=== PATIENT | female | born 1940 | race Caucasian/White ===

== ENCOUNTER 2023-10-29 10:15 | Outpatient (RCR) | payer MEDICARE, SELFPAY ==
[2023-10-21 15:21] VITALS: BMI 26.1
[2023-10-28 10:00] VITALS: BMI 26.7
== END 2024-02-26 23:59 | disposition home or self-care (01) ==
PROVIDERS: PCP Pediatrics; Visit Provider Pediatrics
DX: I89.0 Lymphedema, not elsewhere classified (principal); R42 Dizziness and giddiness; Z51.89 Encounter for other specified aftercare; M54.2 Cervicalgia
CPT/HCPCS: 97110; 97140; 97162; 97166

== ENCOUNTER 2025-03-03 08:44 | Outpatient (CLI) | payer MEDICARE, SELFPAY ==
--- NOTE | 2025-03-03 09:15 | CRLHL7_ITS ---
For Patients: As a result of the 21st Century Cures Act, medical imaging exams and procedure reports are released immediately into your electronic medical record. You may view this report before your referring provider. If you have questions, please contact your health care provider. Technique: 8 ounces of thin barium administered orally. The patient swallowed the contrast within 20 seconds. Timed barium study. Fluoroscopy time 49 seconds. Indication: Dysphagia Findings: 1 minute: Minimal contrast in the distal esophagus. 3 minutes: All contrast has moved into the stomach without any residual contrast in the esophagus. 5 minutes: Normal passage of 13 millimeter barium tablet through the GE junction. Impression: Minimal residual contrast in the distal esophagus at 1 minute. Otherwise unremarkable. Dictated by Sai Ventura MD @ 03/03/2025 3:16:39 PM (Electronically Signed)
== END 2025-03-03 08:45 | disposition home or self-care (01) ==
LOC: RAD 08:48
PROVIDERS: PCP Pediatrics; Visit Provider Internal Medicine Gastroenterology
DX: R13.10 Dysphagia, unspecified (principal)
CPT/HCPCS: 74221